=== PATIENT | female | born 1940 | race Caucasian/White ===

== ENCOUNTER → 2016-04-25 | Outpatient (CLI) | payer MEDICARE, MEDICAID | END | disposition home or self-care (01) | LOC: PETCFH 08:24 | PROVIDERS: ATTEND Physician Assistant | DX: K30 Functional dyspepsia (principal); E11.9 Type 2 diabetes mellitus without complications | CPT/HCPCS: 78264; A9541 ==

== ENCOUNTER 2016-06-23 11:43 | Inpatient (IN) | payer MEDICARE, MEDICAID ==
[~2016-06-23] VITALS: Ht 144.8 cm; Wt 68.9 kg
[2016-06-23] MEDS ORDERED: SODIUM CHLORIDE FLUSH 10ML SYR IVF ONE (12:00)
[2016-06-23] MEDS ORDERED: ONDANSETRON 2MG/ML, 2ML IVPush ONE (12:00)
[2016-06-23] MEDS ORDERED: ASPIRIN 81 MG TABLET CHEW PO ONE (12:00)
[2016-06-23] MEDS ORDERED: PLEASE ENTER ALLERGIES MC SCH ×2 (12:30)
[2016-06-23 12:33] LABS: BLOOD UREA NITROGEN 11 mg/dL (7-18)
[2016-06-23] MEDS ORDERED: NITROGLYCERIN SINGLE TAB 0.4 MG SL ONE (13:02)
[2016-06-23] MEDS ORDERED: ONDANSETRON 2MG/ML, 2ML ONE (13:02)
[2016-06-23] MEDS: NITROGLYCERIN SINGLE TAB 0.4 MG SL PRN ×2 (13:07→13:12)
[2016-06-23] MEDS ORDERED: OMNIPAQUE 350 MG/ML, 100ML BOTTLE ONE (13:45)
[2016-06-23] MEDS ORDERED: SODIUM CHLORIDE FLUSH 10ML SYR IVF PRN (14:30)
[2016-06-23] MEDS ORDERED: BISACODYL 10 MG SUPP PR PRN (16:00)
[2016-06-23] MEDS ORDERED: ONDANSETRON 2MG/ML, 2ML IVPush PRN (16:00)
[2016-06-23] MEDS ORDERED: ONDANSETRON ODT 4 MG PO PRN (16:00)
[2016-06-23] MEDS ORDERED: DOCUSATE 100 MG CAPSULE PO PRN (16:00)
[2016-06-23] MEDS ORDERED: POLYETHYLENE GLYCOL 17 GM PACKET PO PRN (16:00)
[2016-06-23] MEDS ORDERED: morphine SULFATE 10 MG/ML, 1ML IVPush PRN (16:00)
[2016-06-23 16:14] VITALS: BP 114/62
[2016-06-23] MEDS ORDERED: DEXTROSE 50%, 50ML SYRINGE IVPush PRN (16:30)
[2016-06-23] MEDS ORDERED: DEXTROSE 4 GM TAB.CHEW PO PRN (16:30)
[2016-06-23] MEDS ORDERED: GLUCAGON 1 MG IM PRN (16:30)
[2016-06-23] MEDS: METOCLOPRAMIDE 10MG TABLET PO SCH ×2 (16:58→21:38)
[2016-06-23] MEDS: NS + 20MEQ KCL 1,000 ML IV SCH (16:58)
[2016-06-23] MEDS: GUAIFENESIN/DM 200-20MG, 10ML UDC PO PRN (16:58)
[2016-06-23] MEDS: ENOXAPARIN 40 MG/0.4 ML SQ SCH (16:59)
[2016-06-23 19:31] LABS: IS PT STATUS REG ER OR PRE ER? NO
[2016-06-23 19:55] VITALS: BP 105/61
[2016-06-23] MEDS: SODIUM CHLORIDE FLUSH 10ML SYR IVF SCH (20:45)
[2016-06-23] MEDS: INSULIN ASPART 100 UNITS/ML, PEN SQ-INSULIN SCH (21:00)
[2016-06-23] MEDS ORDERED: PRAVASTATIN 20 MG TABLET PO SCH (21:00)
[2016-06-23] MEDS: HYDROXYCHLOROQUINE 200 MG TABLET PO SCH (21:38)
[2016-06-23] MEDS: HYDROcodone/APAP 5/325 TABLET PO PRN (21:38)
[2016-06-23 23:02] LABS: RAPID INFLUENZA A Negative (Negative); RAPID INFLUENZA B Negative (Negative)
[2016-06-24 01:04] VITALS: BP 107/56
[2016-06-24 01:31] LABS: BLOOD UREA NITROGEN 14 mg/dL (7-18)
[2016-06-24 01:46] LABS: IS PT STATUS REG ER OR PRE ER? NO
[2016-06-24] MEDS: NS + 20MEQ KCL 1,000 ML IV SCH (05:21)
[2016-06-24] MEDS: HYDROcodone/APAP 5/325 TABLET PO PRN (05:21)
[2016-06-24] MEDS: GUAIFENESIN/DM 200-20MG, 10ML UDC PO PRN (05:30)
[2016-06-24 06:41] VITALS: BP 104/49
[2016-06-24] MEDS: INSULIN ASPART 100 UNITS/ML, PEN SQ-INSULIN SCH ×3 (07:30→16:00)
[2016-06-24] MEDS ORDERED: REGADENOSON 0.4 MG/5 ML SYRINGE ONE (08:08)
[2016-06-24] MEDS: SODIUM CHLORIDE FLUSH 10ML SYR IVF SCH (08:23)
[2016-06-24] MEDS: METOCLOPRAMIDE 10MG TABLET PO SCH ×3 (08:23→15:33)
[2016-06-24] MEDS: HYDROXYCHLOROQUINE 200 MG TABLET PO SCH (08:24)
[2016-06-24] MEDS ORDERED: FENOFIBRATE 145 MG TABLET PO SCH (09:00)
[2016-06-24] MEDS ORDERED: FOLIC ACID 1 MG TABLET PO SCH (09:00)
[2016-06-24] MEDS ORDERED: METHYLDOPA 250 MG TABLET PO SCH (09:00)
[2016-06-24] MEDS ORDERED: AMLODIPINE 5 MG TABLET PO SCH (09:00)
[2016-06-24 12:46] VITALS: BP 116/64
[2016-06-24] MEDS: ENOXAPARIN 40 MG/0.4 ML SQ SCH (15:33)
[2016-06-24] MEDS ORDERED: FOLI-17 PO (16:05)
[2016-06-24] MEDS ORDERED: HYDR200T PO (16:05)
[2016-06-24] MEDS ORDERED: PRAV20TA2 PO (16:06)
[2016-06-24] MEDS ORDERED: FENO145T13 PO (16:06)
[2016-06-24] MEDS ORDERED: METH500T2 PO (16:06)
[2016-06-24] MEDS ORDERED: METF500T27 PO (16:07)
[2016-06-24] MEDS ORDERED: AMLO5TAB2 PO (16:07)
[2016-06-24] MEDS ORDERED: METO5TAB57 PO (16:08)
[2016-06-24] MEDS ORDERED: HYDR-3240 PO (16:08)
[2016-06-24] MEDS ORDERED: DICL100G8 TP (16:09)
== END 2016-06-24 16:38 | disposition home or self-care (01) | DRG 153 ==
LOC: ED 12:35 → EDIP 14:19 → 5SO 15:46 → DCLOUNGE 06-24 16:05
PROVIDERS: ADMIT Internal Medicine; ATTEND Internal Medicine
DX: J06.9 Acute upper respiratory infection, unspecified (principal); J98.11 Atelectasis; B02.9 Zoster without complications; E11.9 Type 2 diabetes mellitus without complications; E78.00 Pure hypercholesterolemia, unspecified; E78.5 Hyperlipidemia, unspecified; G89.29 Other chronic pain; I11.9 Hypertensive heart disease without heart failure; M06.9 Rheumatoid arthritis, unspecified; Z79.82 Long term (current) use of aspirin; Z82.49 Family history of ischemic heart disease and other diseases of the circulatory system; M54.9 Dorsalgia, unspecified; Z90.49 Acquired absence of other specified parts of digestive tract; Z88.0 Allergy status to penicillin; Z88.1 Allergy status to other antibiotic agents; Z88.8 Allergy status to other drugs, medicaments and biological substances; Z79.899 Other long term (current) drug therapy; R09.1 Pleurisy
CPT/HCPCS: 36415; 71010; 71275; 78452; 80048; 82040; 82962; 83690; 83735; 83880; 84484; 85025; 85379; 85610; 85730; 87400; 93005; 93017; 93306; 96374; J1650; J2405; J2785; J3480; Q9967; A9502; C9898; J2270